=== PATIENT | female | born 1970 | race Hispanic/Latino ===

== ENCOUNTER 2022-07-27 17:50 | Inpatient (IN) | payer SELFPAY ==
[2022-07-27] MEDS ORDERED: Acetaminophen 325 MG TAB PO PRN (20:02)
[2022-07-27] MEDS ORDERED: Ondansetron PF 4 MG/2 ML Vial IVP PRN (20:02)
[2022-07-27] MEDS ORDERED: hydrALAZINE 20 MG/ML VIAL SLOW IVP PRN ×2 (20:07→21:32)
[2022-07-27] MEDS ORDERED: HumaLOG 300 UNITS/3 ML VIAL SC PRN ×2 (20:16)
[2022-07-27] MEDS ORDERED: Dextrose 5% in Water 1,000 ML IV PRN (20:16)
[2022-07-27] MEDS ORDERED: Dextrose 50% Abboject 50 ML SYRINGE SLOW IVP PRN (20:16)
[2022-07-27] MEDS ORDERED: HYDROcodone/Acetaminophen 5/325 mg Tablet ONE (21:53)
[2022-07-27] MEDS: HYDROcodone/Acetaminophen 5/325 mg Tablet PO PRN (22:06)
[2022-07-27 22:59] LABS: Troponin I Less than 0.010 ng/mL (< 0.028)
[2022-07-28] MEDS ORDERED: hydrALAZINE 20 MG/ML VIAL ONE (01:42)
[2022-07-28] MEDS ORDERED: HYDROcodone/Acetaminophen 5/325 mg Tablet ONE ×2 (01:42→09:23)
[2022-07-28 01:53] LABS: Troponin I Less than 0.010 ng/mL (< 0.028)
[2022-07-28] MEDS: HYDROcodone/Acetaminophen 5/325 mg Tablet PO PRN ×5 (02:40→21:47)
[2022-07-28 04:01] LABS: #Monocytes 0.7 10x3/uL (0.0-1.1); #Neutrophils 5.3 10x3/uL (1.5-8.4); %Basophils 0.5 % (0.0-2.0); %Eosinophils 0.4 % (0.0-6.0); %Monocytes 8.3 % (0.0-10.0); %Neutrophils 63.4 % (40.0-75.0); Hemoglobin 10.7 g/dL (12.0-15.5); Mean Corpuscular HGB CONC 32.4 g/dL (32.0-36.0); Mean Corpuscular Hemoglobin 27.8 pg (27.0-33.0); Mean Corpuscular Volume 85.7 fl (81.6-98.3); Mean Platelet Volume 11.2 fl (7.4-10.4); Platelet Count 229 10x3/uL (150-450); RBC Distribution Width 14.6 % (11.5-14.5); Red Blood Cell (RBC) Count 3.85 10x6/uL (3.90-5.03); White Blood Cell (WBC) Count 8.3 10x3/uL (3.5-10.5)
[2022-07-28 04:22] LABS: Anion Gap 14 mmol/L (10-20); BUN (Urea Nitrogen) 21 mg/dL (9.8-20.1); Calc. Creatinine Clearance 0 mL/min (70-130); Calcium 8.5 mg/dL (7.8-10.44); Carbon Dioxide 21 mmol/L (22-29); Cardiac Risk 2.8 (Less than 4.5); Chloride 107 mmol/L (98-107); Cholesterol 71 mg/dl (< 200 Desired); Estimated GFR 26; Glucose 119 mg/dL (70-105); HDL Cholesterol 25 mg/dL (>60 Neg Risk); LDL Cholesterol, Calculated 19 mg/dL; Magnesium 2.3 mg/dL (1.6-2.6); Potassium 3.8 mmol/L (3.5-5.1); Sodium 138 mmol/L (136-145); Triglycerides 134 mg/dL (Less than 150)
[2022-07-28 12:54] LABS: Hemoglobin A1c 10.3 % (4.0-6.0)
[2022-07-28] MEDS ORDERED: Sodium Chloride 0.9% 100 ML ONE (15:07)
[2022-07-28] MEDS: Ampicillin/Sulbactam 3 GM in Sodium Chloride 0.9% 100 ML IVPB SCH ×2 (15:44→21:54)
[2022-07-28 15:49] VITALS: BMI 49.9
[2022-07-28] MEDS ORDERED: Ondansetron ODT 4 MG TAB PO PRN (17:00)
[2022-07-28] MEDS ORDERED: predniSONE 20 MG TAB PO SCH (17:30)
[2022-07-28] MEDS: Rosuvastatin 20 MG TAB PO SCH (21:47)
[2022-07-29] MEDS: Ampicillin/Sulbactam 3 GM in Sodium Chloride 0.9% 100 ML IVPB SCH ×4 (04:00→21:35)
[2022-07-29] MEDS: HYDROcodone/Acetaminophen 5/325 mg Tablet PO PRN ×4 (05:04→21:38)
[2022-07-29] MEDS: Levothyroxine Sodium 112 MCG TAB PO SCH (05:14)
[2022-07-29 05:23] LABS: #Monocytes 0.2 10x3/uL (0.0-1.1); %Basophils 0.1 % (0.0-2.0); %Lymphocytes 14.3 % (18.0-47.0); %Monocytes 2.3 % (0.0-10.0); %Neutrophils 81.9 % (40.0-75.0); Hemoglobin 11.9 g/dL (12.0-15.5); Mean Corpuscular HGB CONC 32.6 g/dL (32.0-36.0); Mean Corpuscular Hemoglobin 27.5 pg (27.0-33.0); Mean Corpuscular Volume 84.3 fl (81.6-98.3); Mean Platelet Volume 10.9 fl (7.4-10.4); Platelet Count 228 10x3/uL (150-450); RBC Distribution Width 14.2 % (11.5-14.5); Red Blood Cell (RBC) Count 4.33 10x6/uL (3.90-5.03); White Blood Cell (WBC) Count 7.3 10x3/uL (3.5-10.5)
[2022-07-29 05:28] LABS: Anion Gap 15 mmol/L (10-20); BUN (Urea Nitrogen) 22 mg/dL (9.8-20.1); Calc. Creatinine Clearance 59 mL/min (70-130); Calcium 8.5 mg/dL (7.8-10.44); Carbon Dioxide 20 mmol/L (22-29); Chloride 105 mmol/L (98-107); Estimated GFR 26; Glucose 195 mg/dL (70-105); Potassium 4.2 mmol/L (3.5-5.1); Sodium 136 mmol/L (136-145)
[2022-07-29] MEDS ORDERED: predniSONE 20 MG TAB PO SCH (08:00)
[2022-07-29] MEDS ORDERED: HumaLOG 300 UNITS/3 ML VIAL SC PRN (08:54)
[2022-07-29] MEDS ORDERED: Ampicillin/Sulbactam 1.5 GM in Sodium Chloride 0.9% 100 ML IVPB SCH (09:00)
[2022-07-29] MEDS ORDERED: Pharmacy to Dose UNASYN IVPB PRN (09:05)
[2022-07-29] MEDS: Amlodipine 5 MG TAB PO SCH (09:29)
[2022-07-29] MEDS: glipiZIDE 10 MG TAB PO SCH (09:29)
[2022-07-29] MEDS ORDERED: NPH, Human Insulin Isophane 300 UNIT/3 ML VIAL SC SCH (10:00)
[2022-07-29] MEDS ORDERED: NPH, Human Insulin Isophane 300 UNIT/3 ML VIAL ONE (11:25)
[2022-07-29] MEDS: Chlorhexidine Gluconate 15 ML UDCUP SSP SCH ×2 (11:42→21:33)
[2022-07-29] MEDS: Heparin 5,000 UNITS/ML VIAL SC SCH ×2 (17:40→21:40)
[2022-07-29] MEDS ORDERED: Aspirin 81 mg Enteric Coated Tablet PO SCH (20:00)
[2022-07-29] MEDS ORDERED: Lantus 1000 UNITS/10 ML VIAL SC SCH (21:00)
[2022-07-29] MEDS: Saccharomyces boulardii 250 MG CAP PO SCH (21:37)
[2022-07-29] MEDS: Rosuvastatin 20 MG TAB PO SCH (21:37)
[2022-07-29] MEDS: Atorvastatin Calcium 20 MG TAB PO SCH (21:38)
[2022-07-30] MEDS: Ampicillin/Sulbactam 3 GM in Sodium Chloride 0.9% 100 ML IVPB SCH ×4 (04:17→23:40)
[2022-07-30] MEDS: HYDROcodone/Acetaminophen 5/325 mg Tablet PO PRN ×4 (04:29→23:40)
[2022-07-30 04:38] LABS: #Eosinphils 0.1 10x3/uL (0.0-0.5); #Monocytes 0.7 10x3/uL (0.0-1.1); #Neutrophils 5.4 10x3/uL (1.5-8.4); %Basophils 0.4 % (0.0-2.0); %Eosinophils 0.6 % (0.0-6.0); %Monocytes 7.6 % (0.0-10.0); Hemoglobin 11.8 g/dL (12.0-15.5); Mean Corpuscular HGB CONC 32.7 g/dL (32.0-36.0); Mean Corpuscular Hemoglobin 27.6 pg (27.0-33.0); Mean Corpuscular Volume 84.5 fl (81.6-98.3); Mean Platelet Volume 10.5 fl (7.4-10.4); Platelet Count 249 10x3/uL (150-450); RBC Distribution Width 14.6 % (11.5-14.5); Red Blood Cell (RBC) Count 4.27 10x6/uL (3.90-5.03); White Blood Cell (WBC) Count 9.3 10x3/uL (3.5-10.5)
[2022-07-30 04:46] LABS: Anion Gap 14 mmol/L (10-20); BUN (Urea Nitrogen) 26 mg/dL (9.8-20.1); Calc. Creatinine Clearance 56 mL/min (70-130); Carbon Dioxide 21 mmol/L (22-29); Chloride 108 mmol/L (98-107); Estimated GFR 24; Glucose 72 mg/dL (70-105); Potassium 3.5 mmol/L (3.5-5.1); Sodium 139 mmol/L (136-145)
[2022-07-30] MEDS: Heparin 5,000 UNITS/ML VIAL SC SCH ×3 (07:18→23:40)
[2022-07-30] MEDS: Levothyroxine Sodium 112 MCG TAB PO SCH (07:19)
[2022-07-30] MEDS: Chlorhexidine Gluconate 15 ML UDCUP SSP SCH ×2 (08:58→20:45)
[2022-07-30] MEDS: glipiZIDE 10 MG TAB PO SCH (08:59)
[2022-07-30] MEDS: Amlodipine 5 MG TAB PO SCH (08:59)
[2022-07-30] MEDS: Aspirin 81 mg Enteric Coated Tablet PO SCH (08:59)
[2022-07-30] MEDS: Rosuvastatin 20 MG TAB PO SCH (20:45)
[2022-07-30] MEDS: Saccharomyces boulardii 250 MG CAP PO SCH (21:45)
[2022-07-30] MEDS: Atorvastatin Calcium 20 MG TAB PO SCH (23:00)
[2022-07-31] MEDS: Ampicillin/Sulbactam 3 GM in Sodium Chloride 0.9% 100 ML IVPB SCH ×2 (05:00→09:28)
[2022-07-31] MEDS: Levothyroxine Sodium 112 MCG TAB PO SCH (06:32)
[2022-07-31] MEDS: Heparin 5,000 UNITS/ML VIAL SC SCH (06:33)
[2022-07-31] MEDS: HYDROcodone/Acetaminophen 5/325 mg Tablet PO PRN (07:00)
[2022-07-31] MEDS: Chlorhexidine Gluconate 15 ML UDCUP SSP SCH (09:19)
[2022-07-31] MEDS: Amlodipine 5 MG TAB PO SCH (09:20)
[2022-07-31] MEDS: glipiZIDE 10 MG TAB PO SCH (09:20)
[2022-07-31] MEDS: Aspirin 81 mg Enteric Coated Tablet PO SCH (09:20)
[2022-07-31 11:26] VITALS: BP 147/67; TEMP 97.4
== END 2022-07-31 12:10 | disposition home or self-care (01) | DRG 125 ==
LOC: CSHERS 17:50 → CSHERHOLD 21:43 → INTOOBSV 21:43 → CSHTELE 07-28 10:41 → OBSVTOIN 07-29 08:03
PROVIDERS: ADMIT Internal Medicine; ATTEND Internal Medicine
DX: E11.39 Type 2 diabetes mellitus with other diabetic ophthalmic complication (principal); L03.211 Cellulitis of face; N18.4 Chronic kidney disease, stage 4 (severe); Z68.43 Body mass index [BMI] 50.0-59.9, adult; H49.01 Third [oculomotor] nerve palsy, right eye; E78.5 Hyperlipidemia, unspecified; I12.9 Hypertensive chronic kidney disease with stage 1 through stage 4 chronic kidney disease, or unspecified chronic kidney disease; E11.22 Type 2 diabetes mellitus with diabetic chronic kidney disease; E03.9 Hypothyroidism, unspecified; H02.401 Unspecified ptosis of right eyelid; H53.2 Diplopia; K04.7 Periapical abscess without sinus; E66.01 Morbid (severe) obesity due to excess calories; G47.33 Obstructive sleep apnea (adult) (pediatric); Z79.4 Long term (current) use of insulin; Z79.82 Long term (current) use of aspirin; Z79.899 Other long term (current) drug therapy
CPT/HCPCS: 36415; 36416; 70486; 70551; 71046; 80048; 80061; 83036; 83735; 84484; 85025; 85652; 86140; 93005; 94760; 96374; 96375; 96376; G0378; J0295; J0360; J1644; J1815; J2405; J3490; J7512; Q0162